=== PATIENT | female | born 1940 | race Caucasian/White ===

== ENCOUNTER → 2020-08-12 | Outpatient (CLI) | payer MEDICARE | END | disposition home or self-care (01) | LOC: RAH 10:19 | PROVIDERS: ATTEND Internal Medicine | DX: N12 Tubulo-interstitial nephritis, not specified as acute or chronic (principal); J90 Pleural effusion, not elsewhere classified; I31.3 Pericardial effusion (noninflammatory); I51.7 Cardiomegaly; K57.30 Diverticulosis of large intestine without perforation or abscess without bleeding; Z95.0 Presence of cardiac pacemaker | CPT/HCPCS: 74176 ==

== ENCOUNTER 2024-09-14 09:04 | Emergency (ER) | payer MEDICARE ==
[~2024-09-14] VITALS: Ht 157.5 cm; Wt 59.0 kg
[2024-09-14 09:43] LABS: BASOPHILS # (AUTO) 0.08 K/uL (0.00-0.20); BASOPHILS % (AUTO) 1.1 % (0.0-5.0); EOSINOPHILS % (AUTO) 8.2 % (0.0-8.0); HEMATOCRIT 37.9 % (36-48); IMMATURE GRANULOCYTE ABSOLUTE 0.02 K/uL (0-1); LYMPHOCYTES % (AUTO) 13.8 % (21.0-51.0); MEAN CORPUSCULAR HEMOGLOBIN 30.6 pg (27.0-33.0); MEAN CORPUSCULAR HGB CONC 33.8 g/dL (32.0-36.0); MEAN CORPUSCULAR VOLUME 90.7 fL (79-99); MONOCYTES # (AUTO) 0.6 K/uL (0.1-1.0); MONOCYTES % (AUTO) 7.8 % (3.0-13.0); NEUTROPHILS % (AUTO) 68.8 % (40.0-77.0); PLATELET COUNT (AUTO) 191 K/uL (130-400); RED BLOOD CELL COUNT(AUTO) 4.18 MIL/uL (4.00-5.50); RED CELL DISTRIBUTION WIDTH 13.5 % (11.0-15.5); WHITE BLOOD COUNT (AUTO) 7.3 K/uL (4.8-10.8)
--- NOTE | 2024-09-14 10:15 | HMCIMG ---
EXAM: Non-contrast CT examination of the Brain CLINICAL HISTORY: Fall. TECHNIQUE: Thin collimated axial CT images of the brain were obtained, with sagittal and coronal reformatted images also submitted. CT scan done according to ALARA (As Low as Reasonably Achievable). CONTRAST USED: None. COMPARISON: None provided. FINDINGS: Acute subdural hematoma along the left cerebral convexity with a maximum thickness of 1 cm. Acute epidural hematoma in the left anterior temporal region with a maximum thickness of 1.6 cm. A 2 x 1.9 cm extra-axial hemorrhage is also identified in the left temporal region medially. No hydrocephalus. The posterior fossa is unremarkable. The skull base and calvarium are intact. The included portions of the paranasal sinuses and mastoid air cells are clear. IMPRESSION: Acute subdural hematoma along the left cerebral convexity. Acute epidural hematoma in the left anterior temporal region. An extra-axial hemorrhage is also identified in the left temporal region medially. /[place]
[2024-09-14 10:16] LABS: CREATININE 0.5 mg/dL (0.5-1.0); MAGNESIUM 1.9 mg/dL (1.80-2.40); POTASSIUM 3.7 mmol/L (3.5-5.1)
--- NOTE | 2024-09-14 10:16 | HMCIMG ---
EXAM: CR Chest, 1 View. CLINICAL HISTORY: fall COMPARISON: None provided. FINDINGS: LUNGS: There is no mass, infiltrate, or acute pulmonary abnormality. PLEURAL SPACES: No evidence of pleural effusion or pneumothorax. MEDIASTINUM: Pacemaker leads overlie the right atrium and right ventricle. Mild cardiomegaly. Pulmonary vasculature and interstitial markings are within normal limits. BONES: No aggressive appearing osseous lesion seen. IMPRESSION: 1. No acute cardiopulmonary findings. 2. Pacemaker leads overlie the right atrium and right ventricle. Mild cardiomegaly. /[place]
--- NOTE | 2024-09-14 10:17 | HMCIMG ---
EXAM: CR right Knee, 3 View. CLINICAL HISTORY: fall COMPARISON: None provided. FINDINGS: Medial compartment predominant mild to moderate tricompartmental right knee joint osteoarthritis. There is no displaced fracture or evidence of periostitis. There is no knee joint effusion. There is severe prepatellar/infrapatellar bursitis. IMPRESSION: 1. No acute osseous injury. 2. Severe prepatellar and infrapatellar bursitis. /[place]
--- NOTE | 2024-09-14 10:21 | NUR ---
SPOKE TO [facility] IN REGARDS TO PT.
--- NOTE | 2024-09-14 10:28 | ERN ---
General Chief Complaint: Mechanical Fall Stated Complaint: FALL Time Seen by MD: 09:06 Source: patient, family History of Present Illness Initial Comments An 84-year-old female coming in after she had a fall earlier today. Per patient she was stretching shortly before going to the restroom and states that she felt spasms in his back and fell fell. Patient states she was having a headache decided to come in for further evaluation. Allergies: Coded Allergies: Beef Containing Products (Unverified Allergy, Unknown, 09/14/24) [place] And Derivatives (Unverified Allergy, Unknown, 09/14/24) Penicillins (Unverified Allergy, Unknown, 09/14/24) Pork/Porcine Containing Products (Unverified Allergy, Unknown, 09/14/24) amlodipine (Unverified Allergy, Unknown, 09/14/24) cefdinir (Unverified Allergy, Unknown, 09/14/24) clindamycin (Unverified Allergy, Unknown, 09/14/24) corn (Unverified Allergy, Unknown, 09/14/24) diltiazem (Unverified Allergy, Unknown, 09/14/24) eggplant (Unverified Allergy, Unknown, 09/14/24) erythromycin base (Unverified Allergy, Unknown, 09/14/24) gluten (Unverified Allergy, Unknown, 09/14/24) levofloxacin (Unverified Allergy, Unknown, 09/14/24) levothyroxine sodium (Unverified Allergy, Unknown, 09/14/24) losartan (Unverified Allergy, Unknown, 09/14/24) metoprolol (Unverified Allergy, Unknown, 09/14/24) milk (Unverified Allergy, Unknown, 09/14/24) olmesartan (Unverified Allergy, Unknown, 09/14/24) pineapple (Unverified Allergy, Unknown, 09/14/24) potato (Unverified Allergy, Unknown, 09/14/24) propafenone (Unverified Allergy, Unknown, 09/14/24) soy (Unverified Allergy, Unknown, 09/14/24) thyroid, pork (Unverified Allergy, Unknown, 09/14/24) tomato (Unverified Allergy, Unknown, 09/14/24) verapamil (Unverified Allergy, Unknown, 09/14/24) Past Medical History Past Medical History: Hypertension Past Surgical History: Pacer/AICD ROS Dictation CONSTITUTIONAL: No chills, no fever, no weakness, no diaphoresis, no malaise. HEAD/FACE: No signs of trauma. Nasal laceration, headache EENT: No eye pain, no blurred vision, no tearing, no double vision, no ear pain, no ear discharge, no nose pain, no nasal congestion, no throat pain, no throat swelling, no mouth pain. RESPIRATORY: No cough, no orthopnea, no SOB, no stridor, no wheezing. CARDIOVASCULAR: No chest pain, no edema, no palpitations, no syncope. GASTROINTESTINAL/ABDOMINAL: No abdominal pain, no constipation, no diarrhea, no nausea, no vomiting. GENITOURINARY: No abnormal discharge, no dysuria, no frequent urination, no hematuria. No complaints of pain in the genitals. MUSCULOSKELETAL: No back pain, no gout, no joint pain, no joint swelling, no muscle pain, no muscle stiffness, no neck pain. INTEGUMENTARY: No change in color, no change in hair/nails, no dryness, no lesion, no lumps, no rash. NEUROLOGICAL/PSYCH: No anxiety, not depressed, no emotional problem, no headache, no numbness, no pre-existing deficit, no history of seizures, no tremors, no weakness. HEMATOLOGIC/LYMPHATIC: Not anemic, no history of blood clots, no apparent bleeding, no bruising, glands not swollen. All Systems Negative, Except as Noted. Physical Exam Physical Exam Dictation VITAL SIGNS: Reviewed. GENERAL APPEARANCE: Alert, oriented x3, no acute distress, obese. HEAD AND FACE: Non-traumatic. EYES: PERRL, pink conjunctivas, eyelid no trauma, anterior chamber clear. EARS: Pinnas intact and no signs of trauma or erythema. Ear canals clear and no discharge. TMs no erythema. NOSE: No discharge, no bleeding. OROPHARYNX: Mouth normal, teeth no caries, tongue pink. Pharynx clear, no erythema. Tonsils no exudates, no abscesses noted. Mucous membrane moist. NECK: Supple, non-tender, no thyromegaly, no masses, no JVD, no bruits. BREAST: Deferred. CHEST: No tenderness, no crepitus, no paradoxical movement, no retractions. LUNGS: Clear, well-ventilated, symmetric, no rales, no wheezing, no rhonchi, no stridor, good breath sounds bilaterally. HEART: Regular rate, regular rhythm, no murmur, no gallops. VASCULAR: No peripheral edema. ABDOMEN: Soft, positive bowel sounds, nondistended, no guarding, nontender, no rebound, no masses no hepatomegaly, no splenomegaly, no Kaur's sign, no he rnias. RECTAL: Deferred. GENITAL: Deferred. NEUROLOGICAL: Normal speech, gross motor function intact, gross sensory functio n intact. MUSCULOSKELETAL: Neck nontender, full range of motion, back nontender, full range of motion. EXTREMITIES: Nontender, full range of motion. SKIN: Color pink, dry, no turgor, no rash, no lacerations, no abrasions, no contusions. LYMPHATICS: Deferred. Results Laboratory and Microbiology Lab and Micro Result Laboratory Tests Test 09/14/24 09:34 White Blood Count 7.3 K/uL (4.8-10.8) Red Blood Count 4.18 MIL/uL (4.00-5.50) Hemoglobin 12.8 g/dL (12.0-16.0) Hematocrit 37.9 % (36-48) Mean Corpuscular Volume 90.7 fL (79-99) Mean Corpuscular Hemoglobin 30.6 pg (27.0-33.0) Mean Corpuscular Hemoglobin Concent 33.8 g/dL (32.0-36.0) Red Cell Distribution Width 13.5 % (11.0-15.5) Platelet Count 191 K/uL (130-400) Mean Platelet Volume 10.4 fL (7.5-10.5) Immature Granulocyte % (Auto) 0.3 % (0-1) Neutrophils (%) (Auto) 68.8 % (40.0-77.0) Lymphocytes (%) (Auto) 13.8 % (21.0-51.0) L Monocytes (%) (Auto) 7.8 % (3.0-13.0) Eosinophils (%) (Auto) 8.2 % (0.0-8.0) H Basophils (%) (Auto) 1.1 % (0.0-5.0) Neutrophils # (Auto) 5.0 K/uL (1.8-7.7) Lymphocytes # (Auto) 1.0 K/uL (1.0-4.8) Monocytes # (Auto) 0.6 K/uL (0.1-1.0) Eosinophils # (Auto) 0.60 K/uL (0.00-0.70) Basophils # (Auto) 0.08 K/uL (0.00-0.20) Absolute Immature Granulocyte (auto 0.02 K/uL (0-1) Nucleated Red Blood Cells 0.0 % (0.0-0.19) Sodium Level 136 mmol/L (136-145) Potassium Level 3.7 mmol/L (3.5-5.1) Chloride Level 100 mmol/L (101-111) L Carbon Dioxide Level 31 mmol/L (21-32) Blood Urea Nitrogen 12 mg/dL (7-18) Creatinine 0.5 mg/dL (0.5-1.0) Glomerular Filtration Rate Calc 92 mL/min (>90) Random Glucose 103 mg/dL (70-105) Total Calcium 8.3 mg/dL (8.5-10.1) L Magnesium Level 1.90 mg/dL (1.80-2.40) Total Creatine Kinase 81 U/L (21-232) Troponin I High Sensitivity 12 ng/L (4-50) Labs Reviewed?: Yes EKG/XRAY/US/CT/MRI [place] [address] IMAGING REPORT Addendum PATIENT: SKYLAR MALCOLM MR#: [id number] : 1940 SEX: F AGE: 84 LOCATION: [facility] ORDER 7 STATUS: REG ER REPORT#: [id number] SERVICE 5 REASON: fall ORDERING PHYSICIAN: BRODERICK REYNOLDS MD PROCEDURE: HEAD WO - CT HEAD/BRAIN W/O CONTRAST ADDENDUM REPORT ADDENDUM: Results were shared by telephone at 11:17 am on 09/14/24 and acknowledged by BRODERICK Woodruff /[place] EXAM: Non-contrast CT examination of the Brain CLINICAL HISTORY: Fall. TECHNIQUE: Thin collimated axial CT images of the brain were obtained, with sagittal and coronal reformatted images also submitted. CT scan done according to ALARA (As Low as Reasonably Achievable). CONTRAST USED: None. COMPARISON: None provided. FINDINGS: Acute subdural hematoma along the left cerebral convexity with a maximum thickness of 1 cm. Acute epidural hematoma in the left anterior temporal region with a maximum thickness of 1.6 cm. A 2 x 1.9 cm extra-axial hemorrhage is also identified in the left temporal region medially. No hydrocephalus. The posterior fossa is unremarkable. The skull base and calvarium are intact. The included portions of the paranasal sinuses and mastoid air cells are clear. IMPRESSION: Acute subdural hematoma along the left cerebral convexity. Acute epidural hematoma in the left anterior temporal region. An extra-axial hemorrhage is also identified in the left temporal region medially. /[place] DICTATED BY: ANA NORRIS Jr., MD DATE: 09/14/24 1118 ELECTRONICALLY SIGNED BY: DATE: EXAM: Non-contrast CT examination of the Brain CLINICAL HISTORY: Fall. TECHNIQUE: Thin collimated axial CT images of the brain were obtained, with sagittal and coronal reformatted images also submitted. CT scan done according to ALARA (As Low as Reasonably Achievable). CONTRAST USED: None. COMPARISON: None provided. FINDINGS: Acute subdural hematoma along the left cerebral convexity with a maximum thickness of 1 cm. Acute epidural hematoma in the left anterior temporal region with a maximum thickness of 1.6 cm. A 2 x 1.9 cm extra-axial hemorrhage is also identified in the left temporal region medially. No hydrocephalus. The posterior fossa is unremarkable. The skull base and calvarium are intact. The included portions of the paranasal sinuses and mastoid air cells are clear. IMPRESSION: Acute subdural hematoma along the left cerebral convexity. Acute epidural hematoma in the left anterior temporal region. An extra-axial hemorrhage is also identified in the left temporal region medially. /[place] DICTATED BY: ANA NORRIS Jr., MD DATE: 09/14/24 111 ELECTRONICALLY SIGNED BY: ANA NORRIS Jr., MD DATE: 09/14/24 111 [facility] MDM: Differential diagnosis: Subdural hematoma, epidural hematoma, status post fall Rationale: Tests considered and ordered secondary to shared decision making include: labs, ECG and radiology Previous outside records reviewed: Old ER visits. Risk of complication and/or morbidity or mortality of patient management: None Medications-Per medication reconciliation Need for hospitalization: Patient does meet criteria for hospitalization. Need for emergency major/minor surgery: No There are no social concerns with this patient. Prescription drug management Prescriptions will include symptomatic care Patient's prior external medical records from other ER visits were reviewed by me as indicated. Prior testing and results from previous visits were reviewed. Prior tests were taken into account with medical decision making and resource utilization, independent historian/historians were used to obtain complete medical history. I independently interpreted the test that were performed, results were reviewed by me and considered findings on radiology if ordered. Medical management and examination interpretation discussions were had by me with other qualified healthcare professionals as indicated for the patient's care. Patient is a an 84-year-old female coming in after she had a fall. Imaging studies disclose an epidural and a subdural hematoma. Patient will be transferred to [facility] gave report to Trauma surgeon Dr. Brownlee, per transfer center ER MD at [facility] auto accepts. GCS of 15 on transfer throughout ER visit patient has a remained neurologically intact alert and oriented. ED Course Orders Procedure Category Date Status Time Cbc With Differential LAB 09/14/24 Complete 09:06 Chest 1vw RAD 09/14/24 Resulted 09:06 12 Lead Ekg Tracing- EKG 09/14/24 Logged Technical 09:06 Magnesium LAB 09/14/24 Complete 09:06 Creatine Kinase, Total LAB 09/14/24 Complete 09:06 Troponin I High LAB 09/14/24 Complete Sensitivity 09:06 Urinalysis Profile LAB 09/14/24 Logged 09:06 Basic Metabolic Panel LAB 09/14/24 Complete 09:06 Ct Head/Brain W/O CT 09/14/24 Resulted Contrast 09:06 Ct Maxillofacial W/O CT 09/14/24 Taken Contrast 09:06 Tetanus,Diphtheria PHA 09/14/24 Complete Tox [Adult] (Diphther 09:30 Lidocaine Hcl 1% 20ml PHA 09/14/24 In Process Vial (Lidocaine Hc 09:30 Knee 3vws Rt RAD 09/14/24 Resulted 09:08 Current Medications Medications (Trade) Dose Ordered Sig/Jonathan Route PRN Reason Start Time Stop Time Status Last Admin Dose Admin Lidocaine HCl (Lidocaine HCl 1% 20ml Vial) 20 ml ONCE INJ 09/14/24 09:30 10/14/24 09:29 Tetanus/ Diphtheria Toxoids Adsorbed (DiphthERIA-teTANUS TOXOID [ADULT]/ DECAVAC) 0.5 ml ONCE ONCE IM 09/14/24 09:30 09/14/24 09:31 DC Vital Signs Date Time Temp Pulse Resp B/P (MAP) Pulse Ox O2 Delivery O2 Flow Rate FiO2 09/14/24 09:11 97.7 76 18 165/100 98 Room Air* 0 21 09/14/24 09:05 97.7 76 18 165/100 98 Room Air 0 Laceration/Wound Repair Laceration/Wound Repair : Wound Location: face Wound Length (cm): 2 Wound's Depth, Shape: superficial Wound Explored: clean Irrigated w/ Saline (ccs): 100 Betadine Prep?: Yes Anesthesia: 1% Lidocaine Volume Anesthetic (ccs): 5 Wound Debrided: minimal Wound Repaired With: sutures Suture Size/Type: 4:0 Number of Sutures: 2 Critical Care Note Comments Critical Care Procedure Note Authorized and Performed by: Total critical care time: Approximately 36 minutes Due to a high probability of clinically significant, life threatening deterioration, the patient required my highest level of preparedness to intervene emergently and I personally spent this critical care time directly and personally managing the patient. This critical care time included obtaining a history; examining the patient; pulse oximetry; ordering and review of studies; arranging urgent treatment with development of a management plan; evaluation of patient's response to treatment; frequent reassessment; and, discussions with other providers. This critical care time was performed to assess and manage the high probability of imminent, life-threatening deterioration that could result in multi-organ failure. It was exclusive of separately billable procedures and treating other patients and teaching time. Please see MDM section and the rest of the note for further information on patient assessment and treatment. DX & DISP Disposition: Transfer Departure Impression: Primary Impression: Epidural hematoma Additional Impressions: Subdural hematoma, Status post fall, Trauma, Nasal laceration Condition: Stable Referrals: MAYELA BRUMFIELD MD (PCP) BRODERICK REYNOLDS MD Sep 14, 2024 10:28
--- NOTE | 2024-09-14 10:30 | NUR ---
SPOKE TO [facility] FOR TRANSFER. FAXED PAPERWORK TO DISPATCH.
--- NOTE | 2024-09-14 10:33 | NUR ---
PT UPGRADED TO TRAUMA LEVEL 2.REFER TO TRAUMA DOCUMENTATION
[2024-09-14] MEDS: LIDOCAINE HCL 1% 20 ML VIAL INJ SCH (10:38)
[2024-09-14] MEDS: teTANUS/diphthERIA TOXOID [ADULT] 0.5 ML VIAL IM ONE (10:42)
[2024-09-14 10:51] VITALS: BP 171/85; PULSE 64; RESP 13; TEMP 97.7; O2SAT 97
--- NOTE | 2024-09-14 10:55 | NUR ---
[facility] ARRIVED FOR [place]SF[place] [facility] [place]
--- NOTE | 2024-09-14 10:58 | NUR ---
ER TO ER REPORT GIVEN TO E[facility] [place]
[2024-09-14] MEDS ORDERED: niCARDIpine 25MG INJ 25 MG in 0.9% NACL 250ML 240 ML IV SCH (11:00)
--- NOTE | 2024-09-14 11:11 | HMCIMG ---
EXAM: CT Maxillofacial Without IV contrast. CLINICAL HISTORY: Fall. TECHNIQUE: Axial computed tomography images of the face without intravenous contrast. Sagittal and coronal reformatted images were generated. CONTRAST: None. COMPARISON: None provided. FINDINGS: FACIAL BONES/ORBITS: No acute fracture or aggressive appearing osseous lesion. The mandible is intact. The orbits are normal. No retrobulbar hematoma or mass. Mild to moderate scattered mucosal thickening in the paranasal sinuses, more pronounced in the maxillary sinus. The nasal septum is mildly deviated to the right side. SOFT TISSUES: Subcutaneous soft tissue hematoma in the right preorbital and nasal region. No radiopaque foreign body or focal fluid collection seen. Acute intracranial hemorrhage in the left temporal region. IMPRESSION: No acute facial bone fracture evident. Subcutaneous soft tissue hematoma in the right preorbital and nasal region. Mild to moderate scattered mucosal thickening in the paranasal sinuses, more pronounced in the maxillary sinus. The nasal septum is mildly deviated to the right side. /[place]
--- NOTE | 2024-09-14 11:19 | NUR ---
PT TRANDFERRED TO [facility] [place] ER VIA [facility]
--- NOTE | 2024-09-14 13:35 | EKG ---
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
== END 2024-09-14 11:15 | disposition short-term general hospital (02) ==
LOC: EDH 09:04
DX: S06.5XAA Traumatic subdural hemorrhage with loss of consciousness status unknown, initial encounter (principal); S01.21XA Laceration without foreign body of nose, initial encounter; I10 Essential (primary) hypertension; Z88.0 Allergy status to penicillin; Z88.1 Allergy status to other antibiotic agents; Z88.8 Allergy status to other drugs, medicaments and biological substances; Z95.810 Presence of automatic (implantable) cardiac defibrillator; W18.39XA Other fall on same level, initial encounter; Y93.89 Activity, other specified; Y92.89 Other specified places as the place of occurrence of the external cause; Y99.8 Other external cause status
CPT/HCPCS: 12011; 36415; 70450; 70486; 71045; 73562; 80048; 82550; 83735; 84484; 85025; 90471; 90714; 93005; 99291; J3490; J7050

== ENCOUNTER → 2024-09-25 | Outpatient (CLI) | payer MEDICARE ==
--- NOTE | 2024-09-25 12:30 | NUR ---
RE: CT BRAIN W/O CONTRAST EMERGENT ABNORMAL FINDINGS RESULTED FROM CT BRAIN W/O CONTRAST. DR Cyril RANKIN NOTIFIED AND DISCUSSED FINDINGS WITH DR Primitivo BRUMFIELD. DR Cyril RANKIN RECOMMENDED PATIENT TO GO TO ER FOR EVALUATION AND DR Primitivo BRUMFIELD AGREED. DR Cyril RANKIN DISCUSSED CRITICAL FINDING WITH PATIENT AND ADVISED HER TO GO TO THE ER. PATIENT GOT UPSET AND REFUSED TO GO THE THE ER. PATIENT LEFT THE DEPARTMENT AND WENT HOME AGAINST THE RADIOLOGIST RECOMMENDATIONS.
--- NOTE | 2024-09-25 12:57 | HMCIMG ---
EXAM: CT Head Without IV contrast. CLINICAL HISTORY: Traumatic subdural hemorrhage with loss of consciousness of unspecified dur TECHNIQUE: Axial computed tomography images of the head/brain without intravenous contrast. COMPARISON: Study date - 09/14 FINDINGS: Acute to subacute subdural hematoma along the left cerebral convexity with a maximum thickness of 1.3 cm and causing mass effects in the form of effacement of adjacent sulci and left lateral ventricle with corresponding midline shift of approximately 0.6 cm towards the right side. A 2.8 x 2.4 cm extra-axial hemorrhage is also identified along the left anterior temporal lobe convexity. No hydrocephalus. The posterior fossa is unremarkable. The skull base and calvarium are intact. The included portions of the paranasal sinuses and mastoid air cells are clear. There is increased thickness of the left panhemispheric subdural hematoma, new cerebral edema, and increased rightward subfalcine herniation.IMPRESSION: 1. Acute to subacute left cerebral convexity subdural hematoma measuring 1.3 cm with 6 mm rightward midline shift and mass effect 2. Left anterior temporal lobe convexity extra-axial hemorrhage measuring 2.8 x 2.4 cm 3. Increased thickness of left subdural hematoma with new cerebral edema and increased rightward subfalcine herniation compared to 09/14 /[place]
== END | disposition home or self-care (01) ==
LOC: RAH 11:32
PROVIDERS: ATTEND Internal Medicine
DX: S06.5X9A Traumatic subdural hemorrhage with loss of consciousness of unspecified duration, initial encounter (principal); R60.0 Localized edema; X58.XXXA Exposure to other specified factors, initial encounter; Y93.89 Activity, other specified; Y92.89 Other specified places as the place of occurrence of the external cause; Y99.8 Other external cause status
CPT/HCPCS: 70450